=== PATIENT | female | born 1985 | race Hispanic/Latino ===

== ENCOUNTER 2022-06-22 13:21 | Outpatient (CLI) | payer OTHER | END 2022-06-22 13:22 | disposition home or self-care (01) | LOC: CSHRAD 13:21 | PROVIDERS: ATTEND Chiropractor | DX: M54.2 Cervicalgia (principal); M25.511 Pain in right shoulder | CPT/HCPCS: 72040 ==

== ENCOUNTER 2022-09-03 11:27 | Outpatient (CLI) | payer OTHER | END 2022-09-03 11:28 | disposition home or self-care (01) | LOC: CSHRAD 11:27 | PROVIDERS: ATTEND Chiropractor | DX: M41.9 Scoliosis, unspecified (principal) | CPT/HCPCS: 72081 ==